=== PATIENT | male | born 1940 | race Caucasian/White ===

== ENCOUNTER 2016-10-23 18:34 | Observation (INO) | payer MEDICARE, OTHER ==
[2016-10-23 20:31] LABS: BASO % 0.5 % (0-2); EOS % 3.9 % (0-7); EOSINOPHIL ABSOLUTE COUNT 0.3 tho/cmm (0.0-0.7); HCT-HEMATOCRIT 37.8 % (36.0-53.5); HGB-HEMOGLOBIN 13.1 gm/dl (13.5-17.0); IMMATURE GRANULOCYTES ABSOLUTE 0.04 tho/cmm (0-0.03); IMMATURE GRANULOCYTES PERCENT 0.5 % (0-0.3); LYMPH % 26.9 % (20-45); MCH (MEAN CORPUSCULAR HGB) 30.8 pg (28.0-32.0); MCHC MEAN CORPUSCULAR HGB CONC 34.7 % (32.0-36.0); MCV (MEAN CELL VOLUME) 88.9 fl (82.0-96.0); MONO % 10.1 % (0-12); MONOCYTE ABSOLUTE COUNT 0.8 tho/cmm (0.0-1.2); NEUTROPHIL ABSOLUTE COUNT 4.3 tho/cmm (1.6-8.0); NEUTROPHIL-AUTOMATED 4.3 tho/cmm (1.6-8.0); NEUTROPHILS % 58.1 % (40-80); PLATELET COUNT 256 tho/cmm (150-450); RED BLOOD COUNT 4.25 mil/cmm (4.40-5.70); RED CELL DISTRIBUTION WIDTH 12.9 % (12.4-16.4); WHITE BLOOD COUNT 7.4 tho/cmm (4.0-10.0)
[2016-10-23 20:45] LABS: ALB/GLOB RATIO 0.9 (0.8-2.0); ALBUMIN 3.4 g/dl (3.5-5.0); ALKALINE PHOSPHATASE 78 U/L (33-138); ALT/SGPT 41 U/L (12-78); ANION GAP 14 mmol/L (0-20); AST/SGOT 21 U/L (10-40); BILIRUBIN,TOTAL 0.4 mg/dl (0.0-1.5); BLOOD UREA NITROGEN 33 mg/dl (6-24); CALCIUM 8.5 mg/dl (8.5-10.5); CARBON DIOXIDE-VENOUS 30 mmol/L (22-32); CHLORIDE 100 mmol/l (96-110); CREATININE 1.44 mg/dl (0.60-1.30); GLUCOSE 120 mg/dL (70-110); MAGNESIUM 2.4 mg/dl (1.8-2.6); POTASSIUM 3.7 mmol/L (3.7-5.1); SODIUM 140 mmol/L (135-145); eGFR VALUE FOR BLACK 54 mL/Min
[2016-10-23] MEDS ORDERED: CYMBALTA60 M1 PO (20:53)
[2016-10-23] MEDS ORDERED: LIPITOR20 M1 PO (20:53)
[2016-10-23] MEDS ORDERED: SYNTHROID175 MC1 PO (20:54)
[2016-10-23] MEDS ORDERED: PRINIVIL10 M1 PO (20:54)
[2016-10-23] MEDS ORDERED: NEURONTIN300 M1 PO (20:54)
[2016-10-23] MEDS ORDERED: CELEBREX200 M1 PO (20:55)
[2016-10-23] MEDS ORDERED: ASPIRIN EC81 MG PO (20:55)
[2016-10-23] MEDS ORDERED: AMBIEN10 M1 PO (20:55)
[2016-10-23] MEDS ORDERED: COLACE100 M1 PO (20:56)
[2016-10-23] MEDS ORDERED: HYDROCHLOROTH12.5 M2 PO (20:57)
[2016-10-23] MEDS ORDERED: PREDNISONE5 M1 PO (20:57)
[2016-10-24 06:23] LABS: ANION GAP 14 mmol/L (0-20); BLOOD UREA NITROGEN 32 mg/dl (6-24); CALCIUM 8.6 mg/dl (8.5-10.5); CARBON DIOXIDE-VENOUS 31 mmol/L (22-32); CHLORIDE 100 mmol/l (96-110); CREATININE 1.49 mg/dl (0.60-1.30); GLUCOSE 94 mg/dL (70-110); POTASSIUM 3.6 mmol/L (3.7-5.1); SODIUM 141 mmol/L (135-145); eGFR VALUE FOR BLACK 52 mL/Min
[2016-10-24] MEDS ORDERED: METOPROLOL TART25 M1 PO (11:37)
[2016-10-24] MEDS ORDERED: LASIX40 M1 PO ×2 (11:37)
[2016-10-24] MEDS ORDERED: NEURONTIN300 M1 PO (11:48)
--- NOTE | 2016-10-24 13:19 | NUR ---
BOTTOM LINER IN ROOM TO PERFORM VIRA
[2016-10-25 06:22] LABS: ANION GAP 11 mmol/L (0-20); BLOOD UREA NITROGEN 27 mg/dl (6-24); CALCIUM 9.1 mg/dl (8.5-10.5); CARBON DIOXIDE-VENOUS 34 mmol/L (22-32); CHLORIDE 103 mmol/l (96-110); CREATININE 1.24 mg/dl (0.60-1.30); GLUCOSE 109 mg/dL (70-110); POTASSIUM 3.6 mmol/L (3.7-5.1); SODIUM 144 mmol/L (135-145); eGFR VALUE FOR BLACK 65 mL/Min
[2016-10-25] MEDS ORDERED: DEMADEX20 M1 PO (16:41)
[2016-10-25] MEDS ORDERED: VENTOLIN HFA18 G2 PO (16:54)
[2016-10-25] MEDS ORDERED: SYMBICORT 160-1 PUFF INH (16:55)
== END 2016-10-25 17:57 ==
LOC: PCUA 18:34
PROVIDERS: Nurse Practitioner Acute Care; ADMIT Internal Medicine Cardiovascular Disease
DX: R06.02 Shortness of breath (principal); J44.9 Chronic obstructive pulmonary disease, unspecified; I10 Essential (primary) hypertension; E78.5 Hyperlipidemia, unspecified; I25.10 Atherosclerotic heart disease of native coronary artery without angina pectoris; E03.9 Hypothyroidism, unspecified; I25.5 Ischemic cardiomyopathy; M19.90 Unspecified osteoarthritis, unspecified site; M48.00 Spinal stenosis, site unspecified; G47.33 Obstructive sleep apnea (adult) (pediatric); R53.83 Other fatigue; F17.210 Nicotine dependence, cigarettes, uncomplicated; E66.9 Obesity, unspecified; Z95.5 Presence of coronary angioplasty implant and graft; Z79.899 Other long term (current) drug therapy; Z79.82 Long term (current) use of aspirin; Z98.890 Other specified postprocedural states
CPT/HCPCS: A9500; C8925; G0378; G0379; G8978-GP-CI; G8979-GP-CH; G8980-GP-CI; G8987-GO-CI; G8988-GO-CI; G8989-GO-CI; J1940; J2250; J2785; J3010